=== PATIENT | male | born 2000 | race Caucasian/White ===

== ENCOUNTER 2024-01-03 16:13 | Emergency (ER) | payer BC, SELFPAY ==
[2024-01-03 16:35] VITALS: BP 127/66; PULSE 76; RESP 18; TEMP 36.8; O2SAT 99; BMI 21.7
--- NOTE | 2024-01-03 16:47 | EXP.UTC ---
Discharge Plan Disposition Patient Disposition: Home, Self-Care Condition: Good Prescriptions Prescriptions: No Action lamotrigine 25 mg tablet 25 mg PO BID Patient Comments: TAKE 1 TABLET 2 TIMES EACH DAY zonisamide 100 mg capsule 100 mg PO BID Patient Comments: TAKE 1 CAPSULE 2 TIMES EACH DAY lamotrigine 100 mg tablet 100 mg PO BID Patient Comments: TAKE 1 TABLET 2 TIMES EACH DAY Referrals Follow up/Referrals: Saud Lopez [Primary Care Provider] - See instructions Activity Restrictions/Add. Instructions Additional Instructions/Restrictions: Your test you had done in the office today will be back in about 5 days, make sure to follow up with your Family Doctor to get those results and treatment if needed No sexual activity until the test results back and negative or if positive you have completed treatment Make sure to follow up Clinical Impressions Clinical Impression: STD exposure Instructions Patient Instructions: Facts About Sexually Transmitted Infections, Chlamydia: The Silent STD Discharge ED Provider: Zully Ramos [facility] [place] HPI General Stated complaint: STI Test Mode of Arrival: Ambulatory Source of Information: Patient Limitations: No Limitations Time Seen by Provider: 01/03/24 16:47 Description of Symptoms (Recalled from Triage Doc. by RN): PATIENT REPORTS POSSIBLE EXPOSURE TO STD AND WANTS TESTED. PATIENT DENIES SYMPTOMS HEENT Symptoms (Recalled from RN notes): No Resp Symptoms (Recalled from RN notes): No Skin Symptoms (Recalled from RN notes): No MS Symptoms (Recalled from RN notes): No Functional Status (Recalled from RN notes): WNL History of Present Illness Provider Complaint: Patient states that he wants to get tested for STD's thinks he may have been exposed States that someone that he was with recently was tested earlier today due to having discharge and sti symptoms so he came in States that he is not having any symptoms but wanted to get tested Related Data Home Medications Medication Instructions Recorded Confirmed lamotrigine 100 mg tablet 100 mg PO BID 01/03/24 01/03/24 lamotrigine 25 mg tablet 25 mg PO BID 01/03/24 01/03/24 zonisamide 100 mg capsule 100 mg PO BID 01/03/24 01/03/24 Allergies Allergy/AdvReac Type Severity Reaction Status Date / Time No Known Allergies Allergy Verified 01/03/24 16:42 Worker's Comp Is this a Worker's Comp case?: No [facility] Disclaimer: The information contained in this section may have been updated after the patient was seen, as this information can be updated by other users. Medical History (Updated 01/03/24 @ 16:51 by Zully Ramos APRN) Epilepsy Social History Smoking Status: Unknown if ever smoked alcohol intake: never current occupational status: employed Travel in the last 8 weeks: None ROS Obtained: Yes All systems reviewed & no additional complaints except as documented and Yes Systems reviewed as appropriate & no additional complaints except as documented Constitutional Constitutional: Reports system reviewed and no additional complaints, except as documented and Reports as per HPI ENT Ears, Nose, Mouth, and Throat: Reports system reviewed and no additional complaints, except as documented and Reports as per HPI Cardiovascular Cardiovascular: Reports system reviewed and no additional complaints, except as documented and Reports as per HPI Respiratory Respiratory: Reports system reviewed and no additional complaints, except as documented and Reports as per HPI Gastrointestinal Gastrointestingal: Reports system reviewed and no additional complaints, except as documented and as per HPI Genitourinary Male Genitourinary: Reports system reviewed and no additional complaints, except as documented, Reports as per HPI, Denies difficulty with ejaculations, Denies penile ulceration, Denies genital lesions, Denies genital pain, Denies penile discharge, Denies scrotal swelling, Denies testicular pain and Reports other (possible exposure to STD no symptoms) Physical Exam General General appearance: alert and in no apparent distress ENT ENT exam: Present mucous membranes moist Respiratory Respiratory exam: Present normal lung sounds bilaterally; Absent respiratory distress or wheezes Cardiovascular Cardiovascular exam: Present regular rate, normal rhythm and normal heart sounds Neurological Exam Neurological exam: Present alert, oriented X3 and normal gait Medical Decision Making Serafin Inquiry Pt receiving controlled substance: No Serafin was queried for this patient: No Vital Signs: 01/03/24 16:35 Temperature 98.2 F Temperature Source Oral Pulse Rate [Left Brachial] 76 Respiratory Rate 18 Blood Pressure [Left Arm] 127/66 Blood Pressure Mean [Left Arm] 86 Blood Pressure Source [Left Arm] Automatic Cuff Blood Pressure Position [Left Arm] Sitting 02 Sat by Pulse Oximetry 99 Oxygen Delivery Method Room Air Lab Data Lab results reviewed: Yes I reviewed the patient's lab results. Orders (Tests/Meds): ORDERS Category Date Time Status UA [Urinalysis and Microscopic] Stat Lab 01/03/24 16:40 Ordered Urine Culture Stat Micro 01/03/24 16:39 Ordered
[2024-01-03 16:50] LABS: Microscopic, Urine URINE MICROSCOPIC (MICROSCOPIC)
[2024-01-03 16:54] LABS: Appearance,Urine CLOUDY (Clear); Bilirubin,Urine Negative (Negative); Blood, Urine Negative (Negative); Color,Urine YELLOW (Yellow); Glucose,Urine (UA) Negative (Negative); Ketones,Urine Negative (Negative); Leukocyte Esterase,Urine Negative (Negative); Nitrate,Urine Negative (Negative); Protein,Urine Negative (Negative)
[2024-01-03 17:09] LABS: Amorphous Sediment,Urine 1+ /lpf; Bacteria,Urine 3+ /lpf
[2024-01-03 17:25] VITALS: BP 127/66; PULSE 76; RESP 18; TEMP 36.8; O2SAT 99
[2024-01-07 03:59] LABS: Neisseria gonorrhoeae, NAA Negative (Negative)
== END 2024-01-03 17:28 | disposition home or self-care (01) ==
PROVIDERS: Emergency Provider Nurse Practitioner; PCP Pediatrics
DX: Z20.2 Contact with and (suspected) exposure to infections with a predominantly sexual mode of transmission (principal); B96.89 Other specified bacterial agents as the cause of diseases classified elsewhere
CPT/HCPCS: 81001; 87086; 87491; 87591; 99212; 99213; G0463